=== PATIENT | male | born 1970 | race Caucasian/White ===

== ENCOUNTER 2020-09-09 21:22 | Inpatient (IN) | payer OTHER ==
[~2020-09-09] VITALS: Ht 165.1 cm; Wt 85.3 kg
[2020-09-09 21:30] VITALS: BP_SYST 113
[2020-09-09 22:23] LABS: BASOPHILS # (AUTO) 0.1 K/uL (0.0-0.2); BASOPHILS % (AUTO) 0.9 % (0.0-2.0); EOSINOPHILS # (AUTO) 0.1 K/uL (0.0-0.4); HEMATOCRIT 38.1 % (36-54); HEMOGLOBIN 12.7 g/dL (14.0-18.0); LYMPHOCYTES # (AUTO) 1.6 K/uL (1.0-5.5); LYMPHOCYTES % (AUTO) 28.8 % (20.5-51.5); MEAN CORPUSCULAR HEMOGLOBIN 34 pg (27-31); MEAN CORPUSCULAR HGB CONC 33 % (32-36); MEAN CORPUSCULAR VOLUME 103 fL (79.0-98.0); MONOCYTES # (AUTO) 0.5 K/uL (0.0-1.0); MONOCYTES % (AUTO) 8.7 % (1.7-9.3); NEUTROPHILS # (AUTO) 3.4 K/uL (1.8-7.7); NEUTROPHILS % (AUTO) 60.6 % (40.0-70.0); PLATELET COUNT (AUTO) 265 K/uL (130-430); RED BLOOD CELL COUNT(AUTO) 3.72 MIL/uL (4.2-6.2); RED CELL DISTRIBUTION WIDTH 18.5 % (9.0-15.0); WHITE BLOOD COUNT (AUTO) 5.7 K/uL (4.8-10.8)
[2020-09-09 22:35] LABS: ANION GAP 8 (5-15); CALCIUM 8.9 mg/dL (8.4-11.0); CHLORIDE 100 mmol/L (98-107); GLUCOSE 108 mg/dL (70-99); POTASSIUM 3.7 mmol/L (3.5-5.1); SODIUM SERUM 140 mmol/L (136-145); UREA NITROGEN, BLOOD 18 mg/dL (8-21)
[2020-09-09 22:37] LABS: GFR AFRICAN AMERICAN 69 mL/min (>90)
[2020-09-09 22:48] LABS: ALANINE AMINOTRANSFERASE 14 U/L (12-78); ALBUMIN 2.7 g/dL (3.4-4.8); ASPARTATE AMINOTRANSFERASE 11 U/L (10-37); TOTAL BILIRUBIN 0.2 mg/dL (0.0-1.0)
[2020-09-09 22:50] LABS: CHOLESTEROL 187 mg/dL (<200); HDL CHOLESTEROL 41 mg/dL (>45); LDL CHOLESTEROL 114 mg/dL (<100); TRIGLYCERIDES 172 mg/dL (30-150)
[2020-09-09 22:55] LABS: ACETAMINOPHEN < 1 ug/mL (1-30); ALCOHOL, BLOOD < 3 mg/dL (<10)
[2020-09-09 22:58] LABS: BILIRUBIN,URINE NEGATIVE (NEGATIVE); BLOOD, URINE NEGATIVE (NEGATIVE); CLARITY/URINE CLEAR (CLEAR); COLOR,URINE YELLOW (YELLOW); GLUCOSE,URINE NEGATIVE (NEGATIVE); KETONES,URINE NEGATIVE (NEGATIVE); LEUKOCYTE ESTERASE ,URINE NEGATIVE (NEGATIVE); NITRITE, URINE NEGATIVE (NEGATIVE); PROTEIN URINE NEGATIVE (NEGATIVE); UROBILINOGEN,URINE 0.2 (0.2-1.0)
[2020-09-09 23:11] LABS: BARBITURATE, URINE NEGATIVE (NEG <=200); BENZODIAZEPINE, URINE POSITIVE (NEG <=150); CANNABINOID, URINE NEGATIVE (NEG <=50); COCAINE, URINE NEGATIVE (NEG <=150); METHAMPHETAMINES SCREEN,URINE NEGATIVE (NEG <=500); OPIATE, URINE NEGATIVE (NEG <=100); PHENCYCLIDINE SCREEN,URINE NEGATIVE (NEG <=25); UR TRICYCLIC ANTIDEPRESSANTS NEGATIVE (NEG <=300); URINE AMPHETAMINE NEGATIVE (NEG <=500); URINE METHADONE NEGATIVE (NEG <=200); URINE OXYCODONE SCREEN NEGATIVE (NEG <=100); URINE PROPOXYPHENE SCREEN NEGATIVE (NEG <=300)
[2020-09-10] MEDS ORDERED: DIPHENHYDRAMINE INJ 50 MG/ML VIAL IM ONE (02:15)
[2020-09-10] MEDS ORDERED: LORazepam 2 MG/ML VIAL IM ONE (02:15)
[2020-09-10] MEDS ORDERED: HALOPERIDOL LACTATE 5 MG/ML VIAL IM ONE (02:15)
[2020-09-10] MEDS ORDERED: ALPRAZolam 0.25 MG TABLET PO ONE (07:00)
[2020-09-10] MEDS ORDERED: ALPRAZolam 0.25 MG TABLET ONE (07:22)
[2020-09-10] MEDS ORDERED: OMEP40CA13 PO (09:01)
[2020-09-10] MEDS ORDERED: LACT1CAP69 PO (09:01)
[2020-09-10] MEDS ORDERED: METF-833 PO (09:01)
[2020-09-10] MEDS ORDERED: LORA-258 PO (09:01)
[2020-09-10] MEDS ORDERED: OLAN5TAB26 PO (09:01)
[2020-09-10] MEDS ORDERED: DIVA-74 PO (09:01)
[2020-09-10] MEDS ORDERED: ACET325T53 PO (09:01)
[2020-09-10] MEDS ORDERED: GABA-529 PO (09:01)
[2020-09-10] MEDS ORDERED: CYM30 PO (09:01)
[2020-09-10] MEDS ORDERED: LORA5SOL60 PO (09:01)
[2020-09-10] MEDS ORDERED: DONE10TA44 PO (09:01)
[2020-09-10] MEDS ORDERED: SIMV20OR PO (09:01)
[2020-09-10] MEDS ORDERED: OLAN15TA18 PO (09:01)
[2020-09-10] MEDS ORDERED: APIX5TAB4 PO (09:01)
[2020-09-10] MEDS ORDERED: ZIPR20CA2 PO (09:01)
[2020-09-10] MEDS ORDERED: FURO-149 PO (09:01)
[2020-09-10] MEDS ORDERED: ASA81 PO (09:01)
[2020-09-10] MEDS ORDERED: TRAZ-250 PO (09:01)
[2020-09-10] MEDS ORDERED: HAL5 PO (09:01)
[2020-09-10 09:30] VITALS: BP_SYST 117
[2020-09-10] MEDS: methylPREDNISolone SOD SUCC/PF 62.5 MG/ML VIAL IVP SCH ×3 (12:07→23:18)
[2020-09-10 12:18] VITALS: BP_SYST 119
[2020-09-10] MEDS: NORMAL SALINE 5 ML DISP.SYRIN IVF SCH ×2 (14:01→23:18)
[2020-09-10 15:32] LABS: BASOPHILS % (AUTO) 0.3 % (0.0-2.0); EOSINOPHILS % (AUTO) 0.5 % (0.0-4.0); LYMPHOCYTES # (AUTO) 0.5 K/uL (1.0-5.5); LYMPHOCYTES % (AUTO) 12.6 % (20.5-51.5); MEAN CORPUSCULAR HEMOGLOBIN 34 pg (27-31); MONOCYTES # (AUTO) 0.1 K/uL (0.0-1.0)
[2020-09-10 15:38] LABS: HEMOGLOBIN 13.2 g/dL (14.0-18.0); MEAN CORPUSCULAR HGB CONC 33 % (32-36); MEAN CORPUSCULAR VOLUME 103 fL (79.0-98.0); MONOCYTES % (AUTO) 2.4 % (1.7-9.3); NEUTROPHILS # (AUTO) 3.7 K/uL (1.8-7.7); NEUTROPHILS % (AUTO) 84.2 % (40.0-70.0); PLATELET COUNT (AUTO) 268 K/uL (130-430); RED CELL DISTRIBUTION WIDTH 17.9 % (9.0-15.0); WHITE BLOOD COUNT (AUTO) 4.3 K/uL (4.8-10.8)
[2020-09-10 15:43] LABS: CALCIUM 8.7 mg/dL (8.4-11.0); CREATININE 1.12 mg/dL (0.55-1.30); POTASSIUM 4.5 mmol/L (3.5-5.1)
[2020-09-10 16:14] VITALS: BP_SYST 114
[2020-09-10] MEDS: LORazepam 2 MG/ML VIAL IVP PRN (18:20)
[2020-09-10 20:00] VITALS: BP_SYST 121
[2020-09-10] MEDS ORDERED: ACETAMINOPHEN 325 MG TABLET PO PRN (20:45)
[2020-09-10] MEDS ORDERED: HALOPERIDOL 5 MG TABLET (HALDOL) PO SCH (20:45)
[2020-09-10] MEDS: ZIPRASIDONE HCL 20 MG CAPSULE (GEODON) PO SCH (21:00)
[2020-09-10] MEDS: DULoxetine HCL 30 MG CAPSULE.DR (CYMBALTA) PO SCH (22:26)
[2020-09-10] MEDS: DIVALPROEX SODIUM 500 MG TABLET( DEPAKOTE) PO SCH (22:26)
[2020-09-10] MEDS: DONEPEZIL HCL 5 MG TABLET (ARICEPT) PO SCH (22:26)
[2020-09-10] MEDS: GABAPENTIN 100 MG CAPSULE PO SCH (22:26)
[2020-09-10] MEDS: traZODone HCL 50 MG TABLET (DESYREL) PO SCH (22:26)
[2020-09-10] MEDS: OLANZapine 5 MG TABLET PO SCH (22:26)
[2020-09-10] MEDS: APIXABAN 2.5 MG TABLET PO SCH (22:38)
[2020-09-10] MEDS ORDERED: APIXABAN 2.5 MG TABLET ONE (22:41)
[2020-09-10] MEDS: INSULIN REGULAR, HUMAN 100 UNITS/ML, 10 ML VIAL (humuLIN R) SUBCUT PRN (23:47)
[2020-09-11 00:10] VITALS: BP_SYST 106
[2020-09-11] MEDS: LORazepam 2 MG/ML VIAL IVP PRN ×2 (02:46→20:46)
[2020-09-11] MEDS: methylPREDNISolone SOD SUCC/PF 62.5 MG/ML VIAL IVP SCH ×4 (03:48→20:50)
[2020-09-11] MEDS: NORMAL SALINE 5 ML DISP.SYRIN IVF SCH ×3 (06:34→20:55)
[2020-09-11] MEDS: INSULIN REGULAR, HUMAN 100 UNITS/ML, 10 ML VIAL (humuLIN R) SUBCUT PRN ×2 (06:37→21:12)
[2020-09-11 06:59] LABS: BASOPHILS % (AUTO) 0.1 % (0.0-2.0); HEMATOCRIT 39.6 % (36-54); LYMPHOCYTES # (AUTO) 0.5 K/uL (1.0-5.5); LYMPHOCYTES % (AUTO) 8.6 % (20.5-51.5); MEAN CORPUSCULAR HEMOGLOBIN 34 pg (27-31); MEAN CORPUSCULAR HGB CONC 33 % (32-36); MEAN CORPUSCULAR VOLUME 103 fL (79.0-98.0); MONOCYTES % (AUTO) 0.6 % (1.7-9.3); NEUTROPHILS # (AUTO) 5.2 K/uL (1.8-7.7); NEUTROPHILS % (AUTO) 90.7 % (40.0-70.0); PLATELET COUNT (AUTO) 293 K/uL (130-430); RED BLOOD CELL COUNT(AUTO) 3.83 MIL/uL (4.2-6.2); RED CELL DISTRIBUTION WIDTH 18.4 % (9.0-15.0); WHITE BLOOD COUNT (AUTO) 5.8 K/uL (4.8-10.8)
[2020-09-11 07:43] LABS: ALBUMIN 2.6 g/dL (3.4-4.8); CREATININE 1.16 mg/dL (0.55-1.30); PHOSPHORUS 4.9 mg/dL (2.7-4.5); POTASSIUM 4.6 mmol/L (3.5-5.1); TOTAL BILIRUBIN 0.3 mg/dL (0.0-1.0)
[2020-09-11 08:06] VITALS: BP_SYST 104
[2020-09-11] MEDS ORDERED: OMEPRAZOLE Non-Formulary 20 MG CAPSULE.DR PO SCH (09:00)
[2020-09-11] MEDS: ASPIRIN 81 MG TAB.CHEW PO SCH (09:57)
[2020-09-11] MEDS: LORATADINE 10 MG TABLET PO SCH (09:57)
[2020-09-11] MEDS: GABAPENTIN 100 MG CAPSULE PO SCH ×3 (09:58→20:50)
[2020-09-11] MEDS: LACTOBACILLUS RHAMNOSUS GG 1 CAP CAPSULE PO SCH (09:58)
[2020-09-11] MEDS: OLANZapine 5 MG TABLET PO SCH ×2 (09:58→20:49)
[2020-09-11] MEDS: APIXABAN 2.5 MG TABLET PO SCH ×2 (09:59→20:52)
[2020-09-11] MEDS: PANTOPRAZOLE SODIUM 40 MG TAB PO SCH (10:00)
[2020-09-11] MEDS: DULoxetine HCL 30 MG CAPSULE.DR (CYMBALTA) PO SCH ×2 (10:00→20:53)
[2020-09-11] MEDS: FUROSEMIDE 40 MG TABLET PO SCH (10:01)
[2020-09-11] MEDS: ZIPRASIDONE HCL 20 MG CAPSULE (GEODON) PO SCH ×2 (10:01→20:52)
[2020-09-11 11:52] VITALS: BP_SYST 132
[2020-09-11] MEDS: DONEPEZIL HCL 5 MG TABLET (ARICEPT) PO SCH (20:49)
[2020-09-11] MEDS: traZODone HCL 50 MG TABLET (DESYREL) PO SCH (20:51)
[2020-09-11] MEDS: SIMVASTATIN 20 MG TABLET PO SCH (20:53)
[2020-09-11] MEDS: DIVALPROEX SODIUM 500 MG TABLET( DEPAKOTE) PO SCH (20:54)
[2020-09-12 00:35] VITALS: BP_SYST 96
[2020-09-12] MEDS: methylPREDNISolone SOD SUCC/PF 62.5 MG/ML VIAL IVP SCH ×4 (01:49→17:40)
[2020-09-12] MEDS: LORazepam 2 MG/ML VIAL IVP PRN ×3 (04:22→17:43)
[2020-09-12] MEDS: NORMAL SALINE 5 ML DISP.SYRIN IVF SCH ×3 (06:17→20:56)
[2020-09-12] MEDS: INSULIN REGULAR, HUMAN 100 UNITS/ML, 10 ML VIAL (humuLIN R) SUBCUT PRN ×2 (06:30→17:00)
[2020-09-12 08:00] VITALS: BP_SYST 118
[2020-09-12] MEDS: PANTOPRAZOLE SODIUM 40 MG TAB PO SCH (09:51)
[2020-09-12] MEDS: GABAPENTIN 100 MG CAPSULE PO SCH ×4 (09:51→21:00)
[2020-09-12] MEDS: OLANZapine 5 MG TABLET PO SCH ×3 (09:51→21:00)
[2020-09-12] MEDS: DULoxetine HCL 30 MG CAPSULE.DR (CYMBALTA) PO SCH ×3 (09:51→21:00)
[2020-09-12] MEDS: ASPIRIN 81 MG TAB.CHEW PO SCH (09:51)
[2020-09-12] MEDS: LORATADINE 10 MG TABLET PO SCH (09:51)
[2020-09-12] MEDS: LACTOBACILLUS RHAMNOSUS GG 1 CAP CAPSULE PO SCH (09:51)
[2020-09-12] MEDS: ZIPRASIDONE HCL 20 MG CAPSULE (GEODON) PO SCH ×2 (09:52→20:56)
[2020-09-12] MEDS: APIXABAN 2.5 MG TABLET PO SCH ×2 (09:53→20:58)
[2020-09-12] MEDS: FUROSEMIDE 40 MG TABLET PO SCH (10:03)
[2020-09-12 11:28] VITALS: BP_SYST 117
[2020-09-12 12:47] VITALS: BP_SYST 97
[2020-09-12] MEDS: HALOPERIDOL 5 MG TABLET (HALDOL) PO PRN (14:47)
[2020-09-12 16:31] VITALS: BP_SYST 110
[2020-09-12] MEDS: traZODone HCL 50 MG TABLET (DESYREL) PO SCH ×2 (20:55→21:00)
[2020-09-12] MEDS: DONEPEZIL HCL 5 MG TABLET (ARICEPT) PO SCH ×2 (20:55→21:00)
[2020-09-12] MEDS: DIVALPROEX SODIUM 500 MG TABLET( DEPAKOTE) PO SCH ×2 (20:56→21:00)
[2020-09-12] MEDS: SIMVASTATIN 20 MG TABLET PO SCH (20:56)
[2020-09-13] VITALS (8 sets, daily range): BP systolic 96–125
[2020-09-13] MEDS: LORazepam 2 MG/ML VIAL IVP PRN ×3 (00:06→16:51)
[2020-09-13] MEDS: methylPREDNISolone SOD SUCC/PF 62.5 MG/ML VIAL IVP SCH ×4 (00:07→17:18)
[2020-09-13] MEDS: HALOPERIDOL 5 MG TABLET (HALDOL) PO PRN ×3 (00:45→16:50)
[2020-09-13] MEDS: NORMAL SALINE 5 ML DISP.SYRIN IVF SCH ×3 (06:24→20:59)
[2020-09-13] MEDS: INSULIN REGULAR, HUMAN 100 UNITS/ML, 10 ML VIAL (humuLIN R) SUBCUT PRN ×2 (06:28→11:16)
[2020-09-13] MEDS: OLANZapine 5 MG TABLET PO SCH ×2 (09:39→20:02)
[2020-09-13] MEDS: PANTOPRAZOLE SODIUM 40 MG TAB PO SCH (09:40)
[2020-09-13] MEDS: FUROSEMIDE 40 MG TABLET PO SCH (09:40)
[2020-09-13] MEDS: LACTOBACILLUS RHAMNOSUS GG 1 CAP CAPSULE PO SCH (09:40)
[2020-09-13] MEDS: APIXABAN 2.5 MG TABLET PO SCH ×2 (09:41→20:04)
[2020-09-13] MEDS: GABAPENTIN 100 MG CAPSULE PO SCH ×3 (09:41→20:03)
[2020-09-13] MEDS: DULoxetine HCL 30 MG CAPSULE.DR (CYMBALTA) PO SCH ×2 (09:41→20:03)
[2020-09-13] MEDS: ZIPRASIDONE HCL 20 MG CAPSULE (GEODON) PO SCH ×2 (09:41→20:02)
[2020-09-13] MEDS: LORATADINE 10 MG TABLET PO SCH (09:41)
[2020-09-13] MEDS: ASPIRIN 81 MG TAB.CHEW PO SCH (09:41)
[2020-09-13] MEDS: traZODone HCL 50 MG TABLET (DESYREL) PO SCH (20:02)
[2020-09-13] MEDS: DONEPEZIL HCL 5 MG TABLET (ARICEPT) PO SCH (20:03)
[2020-09-13] MEDS: DIVALPROEX SODIUM 500 MG TABLET( DEPAKOTE) PO SCH (20:03)
[2020-09-13] MEDS: SIMVASTATIN 20 MG TABLET PO SCH (20:59)
[2020-09-13] MEDS ORDERED: methylPREDNISolone SOD SUCC/PF 62.5 MG/ML VIAL IVP SCH (21:00)
[2020-09-14 00:55] VITALS: BP_SYST 118
[2020-09-14] MEDS: NORMAL SALINE 5 ML DISP.SYRIN IVF SCH ×3 (06:03→21:00)
[2020-09-14] MEDS: HALOPERIDOL 5 MG TABLET (HALDOL) PO PRN ×2 (06:07→16:55)
[2020-09-14] MEDS: INSULIN REGULAR, HUMAN 100 UNITS/ML, 10 ML VIAL (humuLIN R) SUBCUT PRN ×2 (06:23→12:02)
[2020-09-14] MEDS ORDERED: methylPREDNISolone SOD SUCC/PF 62.5 MG/ML VIAL IVP ONE (09:15)
[2020-09-14] MEDS: ASPIRIN 81 MG TAB.CHEW PO SCH (09:29)
[2020-09-14] MEDS: DULoxetine HCL 30 MG CAPSULE.DR (CYMBALTA) PO SCH ×2 (09:29→20:58)
[2020-09-14] MEDS: OLANZapine 5 MG TABLET PO SCH ×2 (09:30→20:59)
[2020-09-14] MEDS: APIXABAN 2.5 MG TABLET PO SCH ×2 (09:30→20:57)
[2020-09-14] MEDS: LORATADINE 10 MG TABLET PO SCH (09:31)
[2020-09-14] MEDS: FUROSEMIDE 40 MG TABLET PO SCH (09:31)
[2020-09-14] MEDS: PANTOPRAZOLE SODIUM 40 MG TAB PO SCH (09:31)
[2020-09-14] MEDS: GABAPENTIN 100 MG CAPSULE PO SCH ×3 (09:32→20:59)
[2020-09-14] MEDS: LACTOBACILLUS RHAMNOSUS GG 1 CAP CAPSULE PO SCH (09:32)
[2020-09-14 09:53] VITALS: BP_SYST 110
[2020-09-14] MEDS: ZIPRASIDONE HCL 20 MG CAPSULE (GEODON) PO SCH ×2 (09:56→20:58)
[2020-09-14] MEDS: LORazepam 2 MG/ML VIAL IVP PRN ×2 (11:43→23:53)
[2020-09-14 12:14] VITALS: BP_SYST 129
[2020-09-14 17:21] VITALS: BP_SYST 118
[2020-09-14 20:55] VITALS: BP_SYST 110
[2020-09-14] MEDS: methylPREDNISolone SOD SUCC/PF 62.5 MG/ML VIAL IVP SCH (20:57)
[2020-09-14] MEDS: traZODone HCL 50 MG TABLET (DESYREL) PO SCH (20:58)
[2020-09-14] MEDS: DONEPEZIL HCL 5 MG TABLET (ARICEPT) PO SCH (20:58)
[2020-09-14] MEDS: SIMVASTATIN 20 MG TABLET PO SCH (20:59)
[2020-09-14] MEDS: DIVALPROEX SODIUM 500 MG TABLET( DEPAKOTE) PO SCH (20:59)
[2020-09-14 23:55] VITALS: BP_SYST 105
[2020-09-15] MEDS: NORMAL SALINE 5 ML DISP.SYRIN IVF SCH ×3 (06:10→22:23)
[2020-09-15 06:37] LABS: BASOPHILS % (AUTO) 0.1 % (0.0-2.0); EOSINOPHILS % (AUTO) 0.1 % (0.0-4.0); HEMATOCRIT 42.6 % (36-54); HEMOGLOBIN 13.9 g/dL (14.0-18.0); LYMPHOCYTES # (AUTO) 0.8 K/uL (1.0-5.5); LYMPHOCYTES % (AUTO) 9.7 % (20.5-51.5); MEAN CORPUSCULAR HEMOGLOBIN 34 pg (27-31); MEAN CORPUSCULAR HGB CONC 33 % (32-36); MEAN CORPUSCULAR VOLUME 104 fL (79.0-98.0); MONOCYTES # (AUTO) 0.2 K/uL (0.0-1.0); MONOCYTES % (AUTO) 2.5 % (1.7-9.3); NEUTROPHILS # (AUTO) 7.2 K/uL (1.8-7.7); NEUTROPHILS % (AUTO) 87.6 % (40.0-70.0); PLATELET COUNT (AUTO) 331 K/uL (130-430); RED CELL DISTRIBUTION WIDTH 17.7 % (9.0-15.0); WHITE BLOOD COUNT (AUTO) 8.3 K/uL (4.8-10.8)
[2020-09-15 06:46] LABS: CALCIUM 8.6 mg/dL (8.4-11.0); CREATININE 1.24 mg/dL (0.55-1.30); POTASSIUM 4.8 mmol/L (3.5-5.1)
[2020-09-15 08:00] VITALS: BP_SYST 111
[2020-09-15] MEDS: ASPIRIN 81 MG TAB.CHEW PO SCH (10:06)
[2020-09-15] MEDS: GABAPENTIN 100 MG CAPSULE PO SCH ×3 (10:06→20:12)
[2020-09-15] MEDS: LACTOBACILLUS RHAMNOSUS GG 1 CAP CAPSULE PO SCH (10:06)
[2020-09-15] MEDS: OLANZapine 5 MG TABLET PO SCH ×2 (10:06→20:12)
[2020-09-15] MEDS: DULoxetine HCL 30 MG CAPSULE.DR (CYMBALTA) PO SCH ×2 (10:06→20:12)
[2020-09-15] MEDS: LORATADINE 10 MG TABLET PO SCH (10:06)
[2020-09-15] MEDS: PANTOPRAZOLE SODIUM 40 MG TAB PO SCH (10:06)
[2020-09-15] MEDS: methylPREDNISolone SOD SUCC/PF 62.5 MG/ML VIAL IVP SCH ×2 (10:06→20:21)
[2020-09-15] MEDS: FUROSEMIDE 40 MG TABLET PO SCH (10:07)
[2020-09-15] MEDS: ZIPRASIDONE HCL 20 MG CAPSULE (GEODON) PO SCH ×2 (10:07→20:21)
[2020-09-15] MEDS: APIXABAN 2.5 MG TABLET PO SCH ×2 (10:10→20:13)
[2020-09-15 12:15] VITALS: BP_SYST 123
[2020-09-15] MEDS: LORazepam 2 MG/ML VIAL IVP PRN ×2 (16:14→22:29)
[2020-09-15 16:36] VITALS: BP_SYST 110
[2020-09-15] MEDS: HALOPERIDOL 5 MG TABLET (HALDOL) PO PRN (18:20)
[2020-09-15 20:08] VITALS: BP_SYST 115
[2020-09-15] MEDS: DIVALPROEX SODIUM 500 MG TABLET( DEPAKOTE) PO SCH (20:11)
[2020-09-15] MEDS: SIMVASTATIN 20 MG TABLET PO SCH (20:12)
[2020-09-15] MEDS: DONEPEZIL HCL 5 MG TABLET (ARICEPT) PO SCH (20:12)
[2020-09-15] MEDS: traZODone HCL 50 MG TABLET (DESYREL) PO SCH (20:12)
[2020-09-16 00:08] VITALS: BP_SYST 95
[2020-09-16] MEDS: NORMAL SALINE 5 ML DISP.SYRIN IVF SCH ×3 (06:01→21:05)
[2020-09-16 06:56] LABS: BASOPHILS % (AUTO) 0.1 % (0.0-2.0); HEMATOCRIT 40.9 % (36-54); HEMOGLOBIN 13.4 g/dL (14.0-18.0); LYMPHOCYTES # (AUTO) 1.1 K/uL (1.0-5.5); LYMPHOCYTES % (AUTO) 10.4 % (20.5-51.5); MEAN CORPUSCULAR HEMOGLOBIN 34 pg (27-31); MEAN CORPUSCULAR HGB CONC 33 % (32-36); MEAN CORPUSCULAR VOLUME 102 fL (79.0-98.0); MONOCYTES # (AUTO) 0.3 K/uL (0.0-1.0); NEUTROPHILS # (AUTO) 8.9 K/uL (1.8-7.7); NEUTROPHILS % (AUTO) 86.5 % (40.0-70.0); PLATELET COUNT (AUTO) 319 K/uL (130-430); RED BLOOD CELL COUNT(AUTO) 3.99 MIL/uL (4.2-6.2); RED CELL DISTRIBUTION WIDTH 17.9 % (9.0-15.0); WHITE BLOOD COUNT (AUTO) 10.2 K/uL (4.8-10.8)
[2020-09-16 07:29] LABS: CALCIUM 8.8 mg/dL (8.4-11.0); CREATININE 1.13 mg/dL (0.55-1.30); POTASSIUM 4.6 mmol/L (3.5-5.1)
[2020-09-16 08:00] VITALS: BP_SYST 106
[2020-09-16] MEDS: LACTOBACILLUS RHAMNOSUS GG 1 CAP CAPSULE PO SCH (09:05)
[2020-09-16] MEDS: PANTOPRAZOLE SODIUM 40 MG TAB PO SCH (09:06)
[2020-09-16] MEDS: GABAPENTIN 100 MG CAPSULE PO SCH ×3 (09:06→20:49)
[2020-09-16] MEDS: DULoxetine HCL 30 MG CAPSULE.DR (CYMBALTA) PO SCH ×2 (09:06→20:49)
[2020-09-16] MEDS: OLANZapine 5 MG TABLET PO SCH ×2 (09:06→20:50)
[2020-09-16] MEDS: FUROSEMIDE 40 MG TABLET PO SCH (09:07)
[2020-09-16] MEDS: LORATADINE 10 MG TABLET PO SCH (09:07)
[2020-09-16] MEDS: methylPREDNISolone SOD SUCC 40 MG/ML VIAL IVP SCH ×2 (09:09→21:05)
[2020-09-16] MEDS: ASPIRIN 81 MG TAB.CHEW PO SCH (09:09)
[2020-09-16] MEDS: APIXABAN 2.5 MG TABLET PO SCH ×2 (09:09→20:51)
[2020-09-16 12:00] VITALS: BP_SYST 137
[2020-09-16] MEDS: ZIPRASIDONE HCL 20 MG CAPSULE (GEODON) PO SCH ×2 (12:19→20:49)
[2020-09-16] MEDS: LORazepam 2 MG/ML VIAL IVP PRN ×2 (14:25→18:11)
[2020-09-16 14:56] VITALS: BP_SYST 129
[2020-09-16] MEDS: HALOPERIDOL 5 MG TABLET (HALDOL) PO PRN (14:59)
[2020-09-16] MEDS: INSULIN REGULAR, HUMAN 100 UNITS/ML, 10 ML VIAL (humuLIN R) SUBCUT PRN (17:35)
[2020-09-16 19:43] VITALS: BP_SYST 109
[2020-09-16] MEDS: DONEPEZIL HCL 5 MG TABLET (ARICEPT) PO SCH (20:48)
[2020-09-16] MEDS: DIVALPROEX SODIUM 500 MG TABLET( DEPAKOTE) PO SCH (20:49)
[2020-09-16] MEDS: traZODone HCL 50 MG TABLET (DESYREL) PO SCH (20:49)
[2020-09-16] MEDS: SIMVASTATIN 20 MG TABLET PO SCH (20:49)
[2020-09-16 22:53] VITALS: BP_SYST 109
[2020-09-17 00:11] VITALS: BP_SYST 98
[2020-09-17] MEDS: NORMAL SALINE 5 ML DISP.SYRIN IVF SCH ×3 (05:52→21:02)
[2020-09-17] MEDS: INSULIN REGULAR, HUMAN 100 UNITS/ML, 10 ML VIAL (humuLIN R) SUBCUT PRN ×3 (06:04→20:27)
[2020-09-17] MEDS: HALOPERIDOL 5 MG TABLET (HALDOL) PO PRN (06:56)
[2020-09-17 08:00] VITALS: BP_SYST 113
[2020-09-17] MEDS: methylPREDNISolone SOD SUCC 40 MG/ML VIAL IVP SCH ×2 (09:15→21:02)
[2020-09-17] MEDS: ZIPRASIDONE HCL 20 MG CAPSULE (GEODON) PO SCH ×2 (09:15→20:05)
[2020-09-17] MEDS: ASPIRIN 81 MG TAB.CHEW PO SCH (09:16)
[2020-09-17] MEDS: PANTOPRAZOLE SODIUM 40 MG TAB PO SCH (09:16)
[2020-09-17] MEDS: OLANZapine 5 MG TABLET PO SCH ×2 (09:16→20:05)
[2020-09-17] MEDS: DULoxetine HCL 30 MG CAPSULE.DR (CYMBALTA) PO SCH ×2 (09:16→20:05)
[2020-09-17] MEDS: GABAPENTIN 100 MG CAPSULE PO SCH ×3 (09:16→20:05)
[2020-09-17] MEDS: LORATADINE 10 MG TABLET PO SCH (09:16)
[2020-09-17] MEDS: LACTOBACILLUS RHAMNOSUS GG 1 CAP CAPSULE PO SCH (09:16)
[2020-09-17] MEDS: FUROSEMIDE 40 MG TABLET PO SCH (09:16)
[2020-09-17] MEDS: APIXABAN 2.5 MG TABLET PO SCH ×2 (09:18→20:29)
[2020-09-17 12:00] VITALS: BP_SYST 112
[2020-09-17 16:00] VITALS: BP_SYST 112
[2020-09-17] MEDS: LORazepam 2 MG/ML VIAL IVP PRN (17:12)
[2020-09-17] MEDS: traZODone HCL 50 MG TABLET (DESYREL) PO SCH (20:05)
[2020-09-17] MEDS: SIMVASTATIN 20 MG TABLET PO SCH (20:05)
[2020-09-17] MEDS: DIVALPROEX SODIUM 500 MG TABLET( DEPAKOTE) PO SCH (20:05)
[2020-09-17] MEDS: DONEPEZIL HCL 5 MG TABLET (ARICEPT) PO SCH (20:06)
[2020-09-17 21:15] VITALS: BP_SYST 124
[2020-09-18 00:22] VITALS: BP_SYST 105
[2020-09-18] MEDS: LORazepam 2 MG/ML VIAL IVP PRN ×2 (03:38→20:16)
[2020-09-18] MEDS: NORMAL SALINE 5 ML DISP.SYRIN IVF SCH ×3 (05:49→20:22)
[2020-09-18 08:00] VITALS: BP_SYST 119
[2020-09-18] MEDS: HALOPERIDOL 5 MG TABLET (HALDOL) PO PRN ×2 (08:36→16:38)
[2020-09-18] MEDS: OLANZapine 5 MG TABLET PO SCH ×2 (08:37→20:21)
[2020-09-18] MEDS: GABAPENTIN 100 MG CAPSULE PO SCH ×3 (08:37→20:11)
[2020-09-18] MEDS: LORATADINE 10 MG TABLET PO SCH (08:37)
[2020-09-18] MEDS: DULoxetine HCL 30 MG CAPSULE.DR (CYMBALTA) PO SCH ×2 (08:37→20:11)
[2020-09-18] MEDS: LACTOBACILLUS RHAMNOSUS GG 1 CAP CAPSULE PO SCH (08:38)
[2020-09-18] MEDS: FUROSEMIDE 40 MG TABLET PO SCH (08:38)
[2020-09-18] MEDS: PANTOPRAZOLE SODIUM 40 MG TAB PO SCH (08:38)
[2020-09-18] MEDS: ASPIRIN 81 MG TAB.CHEW PO SCH (08:38)
[2020-09-18] MEDS: APIXABAN 2.5 MG TABLET PO SCH ×2 (08:40→20:13)
[2020-09-18] MEDS: ZIPRASIDONE HCL 20 MG CAPSULE (GEODON) PO SCH ×2 (08:40→20:11)
[2020-09-18] MEDS: methylPREDNISolone SOD SUCC 40 MG/ML VIAL IVP SCH (08:51)
[2020-09-18] MEDS: INSULIN REGULAR, HUMAN 100 UNITS/ML, 10 ML VIAL (humuLIN R) SUBCUT PRN ×3 (11:46→20:18)
[2020-09-18 17:28] VITALS: BP_SYST 133
[2020-09-18 20:00] VITALS: BP_SYST 121
[2020-09-18] MEDS: DONEPEZIL HCL 5 MG TABLET (ARICEPT) PO SCH (20:11)
[2020-09-18] MEDS: DIVALPROEX SODIUM 500 MG TABLET( DEPAKOTE) PO SCH (20:13)
[2020-09-18] MEDS: traZODone HCL 50 MG TABLET (DESYREL) PO SCH (20:13)
[2020-09-18] MEDS: SIMVASTATIN 20 MG TABLET PO SCH (20:13)
[2020-09-19 00:19] VITALS: BP_SYST 125
[2020-09-19] MEDS: NORMAL SALINE 5 ML DISP.SYRIN IVF SCH ×3 (06:17→20:30)
[2020-09-19 08:00] VITALS: BP_SYST 124
[2020-09-19] MEDS: DULoxetine HCL 30 MG CAPSULE.DR (CYMBALTA) PO SCH ×2 (08:48→20:16)
[2020-09-19] MEDS: ASPIRIN 81 MG TAB.CHEW PO SCH (08:48)
[2020-09-19] MEDS: predniSONE 20 MG TABLET PO SCH (08:48)
[2020-09-19] MEDS: PANTOPRAZOLE SODIUM 40 MG TAB PO SCH (08:48)
[2020-09-19] MEDS: GABAPENTIN 100 MG CAPSULE PO SCH ×3 (08:48→20:16)
[2020-09-19] MEDS: LORATADINE 10 MG TABLET PO SCH (08:48)
[2020-09-19] MEDS: LACTOBACILLUS RHAMNOSUS GG 1 CAP CAPSULE PO SCH (08:48)
[2020-09-19] MEDS: OLANZapine 5 MG TABLET PO SCH ×2 (08:49→20:16)
[2020-09-19] MEDS: FUROSEMIDE 40 MG TABLET PO SCH (08:49)
[2020-09-19] MEDS: ZIPRASIDONE HCL 20 MG CAPSULE (GEODON) PO SCH ×2 (08:49→20:15)
[2020-09-19] MEDS: APIXABAN 2.5 MG TABLET PO SCH ×2 (08:50→20:16)
[2020-09-19 09:52] VITALS: BP_SYST 124
[2020-09-19 12:00] VITALS: BP_SYST 109
[2020-09-19] MEDS: INSULIN REGULAR, HUMAN 100 UNITS/ML, 10 ML VIAL (humuLIN R) SUBCUT PRN ×3 (12:04→20:23)
[2020-09-19] MEDS: HALOPERIDOL 5 MG TABLET (HALDOL) PO PRN (15:18)
[2020-09-19 16:00] VITALS: BP_SYST 137
[2020-09-19 20:00] VITALS: BP_SYST 115
[2020-09-19] MEDS: SIMVASTATIN 20 MG TABLET PO SCH (20:15)
[2020-09-19] MEDS: DONEPEZIL HCL 5 MG TABLET (ARICEPT) PO SCH (20:16)
[2020-09-19] MEDS: DIVALPROEX SODIUM 500 MG TABLET( DEPAKOTE) PO SCH (20:17)
[2020-09-19] MEDS: traZODone HCL 50 MG TABLET (DESYREL) PO SCH (20:17)
[2020-09-20 00:02] VITALS: BP_SYST 106
[2020-09-20] MEDS: NORMAL SALINE 5 ML DISP.SYRIN IVF SCH ×2 (06:08→14:13)
[2020-09-20 07:11] LABS: BASOPHILS % (AUTO) 0.2 % (0.0-2.0); EOSINOPHILS % (AUTO) 0.1 % (0.0-4.0); HEMOGLOBIN 13.5 g/dL (14.0-18.0); LYMPHOCYTES # (AUTO) 2.9 K/uL (1.0-5.5); LYMPHOCYTES % (AUTO) 22.7 % (20.5-51.5); MEAN CORPUSCULAR HEMOGLOBIN 33 pg (27-31); MEAN CORPUSCULAR HGB CONC 32 % (32-36); MEAN CORPUSCULAR VOLUME 103 fL (79.0-98.0); MONOCYTES # (AUTO) 0.6 K/uL (0.0-1.0); MONOCYTES % (AUTO) 4.6 % (1.7-9.3); NEUTROPHILS # (AUTO) 9.3 K/uL (1.8-7.7); NEUTROPHILS % (AUTO) 72.4 % (40.0-70.0); PLATELET COUNT (AUTO) 276 K/uL (130-430); RED BLOOD CELL COUNT(AUTO) 4.07 MIL/uL (4.2-6.2); RED CELL DISTRIBUTION WIDTH 18.5 % (9.0-15.0)
[2020-09-20 07:23] LABS: CALCIUM 8.3 mg/dL (8.4-11.0); CREATININE 1.1 mg/dL (0.55-1.30); POTASSIUM 3.8 mmol/L (3.5-5.1)
[2020-09-20 08:00] VITALS: BP_SYST 117
[2020-09-20] MEDS: PANTOPRAZOLE SODIUM 40 MG TAB PO SCH (08:20)
[2020-09-20] MEDS: GABAPENTIN 100 MG CAPSULE PO SCH ×2 (08:20→14:16)
[2020-09-20] MEDS: ASPIRIN 81 MG TAB.CHEW PO SCH (08:21)
[2020-09-20] MEDS: FUROSEMIDE 40 MG TABLET PO SCH (08:21)
[2020-09-20] MEDS: LACTOBACILLUS RHAMNOSUS GG 1 CAP CAPSULE PO SCH (08:21)
[2020-09-20] MEDS: predniSONE 20 MG TABLET PO SCH (08:21)
[2020-09-20] MEDS: OLANZapine 5 MG TABLET PO SCH (08:21)
[2020-09-20] MEDS: LORATADINE 10 MG TABLET PO SCH (08:21)
[2020-09-20] MEDS: DULoxetine HCL 30 MG CAPSULE.DR (CYMBALTA) PO SCH (08:21)
[2020-09-20] MEDS: ZIPRASIDONE HCL 20 MG CAPSULE (GEODON) PO SCH (08:22)
[2020-09-20] MEDS: APIXABAN 2.5 MG TABLET PO SCH (08:22)
[2020-09-20] MEDS: HALOPERIDOL 5 MG TABLET (HALDOL) PO PRN (09:27)
[2020-09-20 10:20] LABS: WHITE BLOOD COUNT (AUTO) 12.9 K/uL (4.8-10.8)
[2020-09-20] MEDS: INSULIN REGULAR, HUMAN 100 UNITS/ML, 10 ML VIAL (humuLIN R) SUBCUT PRN (11:00)
[2020-09-20] MEDS ORDERED: LORazepam 2 MG/ML VIAL IM PRN (11:15)
[2020-09-20 12:36] VITALS: BP_SYST 137
[2020-09-20 14:29] VITALS: BP_SYST 107
== END 2020-09-20 15:00 | DRG 208 ==
LOC: SED 21:22 → STU 09-10 08:27 → SMU 09-14 15:44
PROVIDERS: ADMIT Internal Medicine; ATTEND Internal Medicine
PROC: 5A1935Z Respiratory Ventilation, Less than 24 Consecutive Hours (ICD-10-PCS; principal; 2020-09-10)
PROC: 0BH17EZ Insertion of Endotracheal Airway into Trachea, Via Natural or Artificial Opening (ICD-10-PCS; 2020-09-10)
PROC: 5A09357 Assistance with Respiratory Ventilation, Less than 24 Consecutive Hours, Continuous Positive Airway Pressure (ICD-10-PCS; 2020-09-10)
PROC: 5A09357 Assistance with Respiratory Ventilation, Less than 24 Consecutive Hours, Continuous Positive Airway Pressure (ICD-10-PCS; 2020-09-10)
PROC: 5A09357 Assistance with Respiratory Ventilation, Less than 24 Consecutive Hours, Continuous Positive Airway Pressure (ICD-10-PCS; 2020-09-14)
PROC: 5A09357 Assistance with Respiratory Ventilation, Less than 24 Consecutive Hours, Continuous Positive Airway Pressure (ICD-10-PCS; 2020-09-20)
DX: J96.01 Acute respiratory failure with hypoxia (principal); G93.41 Metabolic encephalopathy; E43 Unspecified severe protein-calorie malnutrition; J96.02 Acute respiratory failure with hypercapnia; F32.9 Major depressive disorder, single episode, unspecified; F20.9 Schizophrenia, unspecified; F29 Unspecified psychosis not due to a substance or known physiological condition; K21.9 Gastro-esophageal reflux disease without esophagitis; R56.9 Unspecified convulsions; E11.9 Type 2 diabetes mellitus without complications; R19.7 Diarrhea, unspecified; F41.9 Anxiety disorder, unspecified; G47.33 Obstructive sleep apnea (adult) (pediatric); J44.9 Chronic obstructive pulmonary disease, unspecified; Z20.822 Contact with and (suspected) exposure to COVID-19; Z79.1 Long term (current) use of non-steroidal anti-inflammatories (NSAID); Z79.899 Other long term (current) drug therapy; Z79.82 Long term (current) use of aspirin; Z79.01 Long term (current) use of anticoagulants; Q90.9 Down syndrome, unspecified; Z68.31 Body mass index [BMI] 31.0-31.9, adult
CPT/HCPCS: 36415; 36600; 71045; 80048; 80053; 80061; 80307; 81003; 82803-TC; 82962; 83735; 84100; 85025; 87081; 87230-TC; 89055; 93005; 94660; 94760; 96372; 99285; G0378; G0480; G0481; G0482; J1030; J1815; J2060; J2930; J7512